=== PATIENT | female | born 1970 ===

== ENCOUNTER 2018-02-28 17:15 | Emergency (ER) | payer OTHER ==
--- NOTE | 2018-02-28 19:15 | UC ---
Lower Extremity/Ankle HPI - HPI Summary HPI Summary: 48 y/o female presents to the urgent care c/o RT ankle pain and foot pain w/ swelling and bruising s/p twisting her ankle while going down 2 steps on 2017. Pt reports she has been walking w/ limping. She thought swelling was going to get better by applying ice and taking Ibuprofen PO 400mg. However symptoms have worsen, specially w/ walking and touch of the lateral side of ankle and foot. Pain is sharp w/ movement 8/10 and 0/10 at rest. Pt denies numbness or tingling sensation over the ankle or foot, calf pain, SOB, chest pain,abdominal pain, N/V/D. - History of Current Complaint Chief Complaint: UCLowerExtremity Stated Complaint: ANKLE INJURY Time Seen by Provider: 02/28/18 19:11 Hx Obtained From: Patient Hx Last Menstrual Period: [id number] Onset/Duration: Sudden Onset, Lasting Weeks - 1 week, Still Present, Worse Since - 2 days Severity Initially: Moderate Severity Currently: Moderate Pain Intensity: 8 Pain Scale Used: 0-10 Numeric Aggravating Factor(s): Standing, Ambulation Alleviating Factor(s): Rest, Elevation, Ice Able to Bear Weight: Yes - Risk Factors Gout Risk Factors: Negative DVT Risk Factors: Negative Septic Arthritis Risk Factor: Negative - Allergies/Home Medications Allergies/Adverse Reactions: Allergies Allergy/AdvReac Type Severity Reaction Status Date / Time No Known Allergies Allergy Verified 02/28/18 18:14 PMH/Surg Hx/FS Hx/Imm Hx Previously Healthy: Yes - Pt denies PMHX - Surgical History Surgical History: Yes Surgery Procedure, Year, and Place: dental - Family History Known Family History: Positive: Diabetes - Social History Occupation: Employed Full-time Lives: With Family Alcohol Use: Occasionally Substance Use Type: None Smoking Status (MU): Never Smoked Tobacco Review of Systems All Other Systems Reviewed And Are Negative: Yes Constitutional: Positive: Negative Skin: Positive: Bruising - over dorsal and lateral side of Rt foot and RT ankle Eyes: Positive: Negative ENT: Positive: Negative Respiratory: Positive: Negative Cardiovascular: Positive: Negative Gastrointestinal: Positive: Negative Genitourinary: Positive: Negative Motor: Positive: Negative Neurovascular: Positive: Negative Musculoskeletal: Positive: Decreased ROM - RT ankle, Other: - RT ankle pain and RT foot pain s/p injury Neurological: Positive: Negative Psychological: Positive: Negative Is Patient Immunocompromised?: No Physical Exam - Summary Physical Exam Summary: Vital Signs Reviewed: Yes General: well developed, well nourished female, sitting in the examining table w /o any apparent distress Eyes: Positive: Conjunctiva Clear - PERRLA, EOMI, ENT: Positive: Normal ENT inspection, Hearing grossly normal, Pharynx normal, TMs normal Neck: Positive: Supple, Nontender, No Lymphadenopathy Respiratory: Positive: Chest non-tender, Lungs clear, Normal breath sounds, No respiratory distress Cardiovascular: Positive: RRR, No Murmur, Pulses Normal, Brisk Capillary Refill Abdomen Description: Positive: Nontender, No Organomegaly, Soft. Negative: CVA Tenderness (R), CVA Tenderness (L) Bowel Sounds: Positive: Present Musculoskeletal: - RT Ankle: Pt is able to bear weight and ambulate w/ limping. The R ankle is without obvious asymmetry or deformity when compared to the L ankle. Decreased ROM due to pain. Moderate swelling at the lateral malleolus, with tenderness to palpation and mild ecchymosis or bruising observed. Tenderness to palpation over the dorsal side of foot w/ bruising also at the base of 2nd and 3rd toe w/ swelling. Talar tilt test is negative for ligament laxity to valgus or varus stress. Negative anterior drawer. Peroneal nerve is intact with strong eversion and plantar flexion. Point tenderness over the navicular bone w/ swelling. No bony step-off, No tenderness to palpation over toes, point tenderness over the dorsal side of mid foot and base of the 4th and 5th metatarsal and sole at the same level, no tenderness of hindfoot, Decrease plantar/dorsiflexion, inversion/eversion due to pain. Distal motor and neurovascular status are intact. Neurological Exam: Normal Psychological Exam: Normal Skin: warm and dry Triage Information Reviewed: Yes Vital Signs: Initial Vital Signs Temp 98.2 F 02/28/18 18:09 Pulse 90 02/28/18 18:09 Resp 16 02/28/18 18:09 BP 139/82 02/28/18 18:09 Pulse Ox 99 02/28/18 18:09 Lower Extremity Course/Dx - Course Course Of Treatment: 48 y/o female presents to the urgent care c/o RT ankle pain and foot pain w/ swelling and bruising s/p twisting her ankle while going down 2 steps on 02/21/2018. Pt reports she has been walking w/ limping. She thought swelling was going to get better by applying ice and taking Ibuprofen PO 400mg. However symptoms have worsen, specially w/ walking and touch of the lateral side of ankle and foot. Pain is sharp w/ movement 8/10 and 0/10 at rest. Pt denies numbness or tingling sensation over the ankle or foot, calf pain , SOB, chest pain,abdominal pain, N/V/D. Hx obtained. Rt ankle X-ray and RT foot X-ray ordered, Impression: positive Soft tissue swelling over lateral malleolus, possible avulsion fracture over the navicular bone. However, Pt advised Final radiology reports still pending and she will be notified tomorrow morning of the final report. Pt most likely with a RT ankle Sprain. Pt immobilized with a CAM boot. PT Rx Ibuprofen PO to decrease swelling and pain. Pt advised RICE, take Ibuprofen PO for pain and to f/u with Orthopedic DR Ba in 2-3 days further treatment. Pt understood and agreed and left the clinic ambulating. - Differential Dx/Diagnosis Differential Diagnosis/HQI/PQRI: Contusion, Fracture (Closed), Sprain, Strain, Tendonitis Provider Diagnosis: Acute right ankle pain, Right ankle sprain, Contusion of foot, right, Right foot pain Discharge - Sign-Out/Discharge Documenting (check all that apply): Patient Departure - d/c home All imaging exams completed and their final reports reviewed: No - Discharge Plan Condition: Stable Disposition: HOME Prescriptions: Ibuprofen TAB* [Motrin TAB* 800 MG] 800 mg PO Q6H PRN #30 tab PRN Reason: Pain Patient Education Materials: Ankle Sprain (ED), Contusion in Adults (ED) Referrals: [facility] [place] [facility] [Outside] - 3 Days Shawn Ba MD [Medical Doctor] - 2 Days Additional Instructions: 1-Please take medications as directed to alleviate pain and swelling. Final radiology report still pending. There is the possibility of an avulsion fracture over the Navicular bone. You will get a call from us to inform you of the final report. 2-Please apply ice, keep your ankle immobilized with the CAM boot. Elevate your ankle, avoid strenuous exercise, or standing for long periods of time 3- Please f/u with Orthopedic Dr Ba in 2-3 days for further evaluation and treatment. - Billing Disposition and Condition Condition: STABLE Disposition: Home
--- NOTE | 2018-03-01 11:02 | UC ---
- Progress Note Progress Note: Radiologist reading of the right foot and ankle x-rays from February 28, 2018 do not see any fracture. The provider's interpretation from February 28, 2018 mentioned question of an avulsion fracture and that the patient would be called with the radiologist's final reading. I called the patient and got no answer. Nursing to contact the patient and let the patient know that the radiologist did not see any fracture. She should still follow-up with orthopedics. Course/Dx - Diagnoses Provider Diagnoses: Acute right ankle pain, Right ankle sprain, Contusion of foot, right, Right foot pain Discharge - Sign-Out/Discharge Documenting (check all that apply): Patient Departure All imaging exams completed and their final reports reviewed: Yes - Discharge Plan Condition: Stable Disposition: HOME Prescriptions: Ibuprofen TAB* [Motrin TAB* 800 MG] 800 mg PO Q6H PRN #30 tab PRN Reason: Pain Patient Education Materials: Ankle Sprain (ED), Contusion in Adults (ED) Referrals: [facility] [place] [facility] [Outside] - 3 Days Shawn Ba MD [Medical Doctor] - 2 Days Additional Instructions: 1-Please take medications as directed to alleviate pain and swelling. Final radiology report still pending. There is the possibility of an avulsion fracture over the Navicular bone. You will get a call from us to inform you of hte final report. 2-Please apply ice, keep your ankle immobilized with the CAM boot. Elevate your ankle, avoid strenuous exercise, or standing for long periods of time 3- Please f/u with Orthopedic Dr Ba in 2-3 days for further evaluation and treatment. - Billing Disposition and Condition Condition: STABLE Disposition: Home
== END 2018-02-28 20:10 | disposition home or self-care (01) ==
LOC: UCEAST 17:15
DX: S90.31XA Contusion of right foot, initial encounter (principal); S93.401A Sprain of unspecified ligament of right ankle, initial encounter; M79.671 Pain in right foot; X50.0XXA Overexertion from strenuous movement or load, initial encounter; Y93.01 Activity, walking, marching and hiking; Y92.9 Unspecified place or not applicable
CPT/HCPCS: 99203; G0463